=== PATIENT | male | born 1960 | race Caucasian/White ===

== ENCOUNTER → 2017-12-23 | Outpatient (CLI) | payer BC ==
--- NOTE | 2017-12-23 18:30 | ECHOF ---
Referral Reason:Z87.74 History of bicuspid aortioc valve, Z95.2... MEASUREMENTS -------- HEIGHT: 157.5 cm WEIGHT: 79.4 kg BP: RVIDd: 2.9 cm (< 3.3) IVSd: 1.0 cm (0.6 - 1.1) LVIDd: 3.2 cm (3.9 - 5.3) LVPWd: 1.2 cm (0.6 - 1.1) IVSs: 1.3 cm LVIDs: 2.1 cm LVPWs: 1.3 cm LAESV Index (A-L): 28.24 ml/m Ao Diam: 2.9 cm (2.0 - 3.7) AV Cusp: 1.6 cm (1.5 - 2.6) MV E Prem: 0.94 m/s MV DecT: 334 ms MV A Prem: 0.98 m/s MV E/A Ratio: 0.95 FINDINGS -------- Sinus rhythm. This was a technically adequate study. The left ventricular size is normal. There is borderline concentric left ventricular hypertrophy. Overall left ventricular systolic function is normal with, an EF between 55 - 60 %. The right ventricle is normal in size and function. Normal LA size by volume 22+/-6 ml/m2. The right atrium is normal in size. There is no evidence of aortic regurgitation. There is no evidence of aortic stenosis. Normally f unctioning bioprosthetic valve. The mitral valve leaflets are mildly thickened. There is trace to mild mitral regurgitation. Trace tricuspid regurgitation present. Right ventricular systolic pressure is normal at < 35 mmHg. There is no evidence of pulmonary hypertension. Trace/mild (physiologic) pulmonic regurgitation. The aortic root size is normal. Normal inferior vena cava with normal inspiratory collapse consistent with estimated right atrial pre ssure of 5 mmHg. Echo free space indicative of a pericardial fat pad. There is no pericardial effusion. CONCLUSIONS -------- 1. Sinus rhythm. 2. This was a technically adequate study. 3. The left ventricular size is normal. 4. There is borderline concentric left ventricular hypertrophy. 5. Overall left ventricular systolic function is normal with, an EF between 55 - 60 %. 6. Normal LA size by volume 22+/-6 ml/m2. 7. There is no evidence of aortic regurgitation. 8. There is no evidence of aortic stenosis. 9. Normally functioning bioprosthetic valve. 10. The mitral valve leaflets are mildly thickened. 11. There is trace to mild mitral regurgitation. 12. Trace tricuspid regurgitation present. 13. Right ventricular systolic pressure is normal at < 35 mmHg. 14. There is no evidence of pulmonary hypertension. 15. Trace/mild (physiologic) pulmonic regurgitation. 16. The aortic root size is normal. 17. Echo free space indicative of a pericardial fat pad. 18. There is no pericardial effusion. [employer] SUPERVISOR: Prashanth Shaikh RDCS
== END | disposition home or self-care (01) ==
LOC: RADECHMAIN 15:40
PROVIDERS: ATTEND Surgery
DX: Z09 Encounter for follow-up examination after completed treatment for conditions other than malignant neoplasm (principal); I05.8 Other rheumatic mitral valve diseases; I51.7 Cardiomegaly; Z87.74 Personal history of (corrected) congenital malformations of heart and circulatory system; Z95.2 Presence of prosthetic heart valve
CPT/HCPCS: 93306

== ENCOUNTER → 2019-11-25 | Outpatient (CLI) | payer BC ==
--- NOTE | 2019-11-25 08:12 | US ---
EXAMINATION TYPE: US scrotum with doppler. Grayscale and color Doppler Duplex imaging performed of t he scrotum. 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 Patient feels lump right testicle EXAM MEASUREMENTS: TESTICLES: Right Testicle: 3.1 x 1.8 x 2.2 cm Left Testicle: 4.1 x 1.7 x 2.3 cm EPIDIDYMIS HEAD: Right Epididymis: Unable to measure with certainty Left Epididymis: 1.2 cm Doppler performed to assess for testicular vascularity; good bilateral color flow and waveforms are s een. There is no evidence of testicular torsion. Presence of hydroceles: No Presence of varicoceles: No Within the area of the right epididymis, there is a complex cystic area visualized measuring 4.2 x 2. 1 x 3.2 cm IMPRESSION: Large solid and cystic mass right scrotum is outside the testicle as detailed above. Lesi on presumed benign due to location likely epididymal in origin. Does not have appearance of abscess.
== END | disposition home or self-care (01) ==
LOC: RADUSWWP 07:23
PROVIDERS: ATTEND Urology
DX: L72.9 Follicular cyst of the skin and subcutaneous tissue, unspecified (principal); N50.89 Other specified disorders of the male genital organs; D29.31 Benign neoplasm of right epididymis
CPT/HCPCS: 76870; 93975

== ENCOUNTER 2023-08-09 12:05 | Day surgery (SDC) | payer BC ==
[2023-08-06 13:05] VITALS: BMI 26.5
[~2023-08-09 12:05] MED LIST: LACTATED RINGERS 1,000 ML IV SCH; LIDOCAINE 1% (10MG/ML) FOR IV START INTRADERMA PRN; ONDANSETRON 4 MG/2 ML VIAL IVP PRN
[2023-08-09] MEDS: LACTATED RINGERS 1,000 ML IV ONE ×2 (12:28→13:46)
[2023-08-09 13:02] VITALS: RESP 16; TEMP 97.4
[2023-08-09] MEDS ORDERED: PROPOFOL 10 MG/ML 20 ML VIAL IV ONE (13:46)
--- NOTE | 2023-08-09 14:04 | P.PCN ---
Date of Procedure: 08/09/23 Procedure(s) Performed: BRIEF HISTORY: Patient is a 63-year-old pleasant white male scheduled for an elective colonoscopy as a part of screening for colon cancer. His last colonoscopy was 10 years ago. PROCEDURE PERFORMED: Colonoscopy. PREOPERATIVE DIAGNOSIS: Screening for colon cancer. IV sedation per Anesthesia. PROCEDURE: After informed consent was obtained, the patient, was brought into the endoscopy unit. IV sedation was administered by Anesthesia under continuous monitoring. Digital rectal examination was normal. Initially the Olympus CF-160 flexible video colonoscope was then inserted in the rectum, gradually advanced into the cecum without any difficulty. Careful examination was performed as the scope was gradually being withdrawn. Ileocecal valve and the appendiceal orifice were visualized and appeared normal. Prep was excellent. Mucosa of the cecum, ascending colon, transverse colon, descending colon, sigmoid colon, and rectum appeared normal. Moderate left-sided diverticulosis Retroflexion was performed in the rectum and no lesions were seen. The patient tolerated the procedure well. IMPRESSION: Normal-appearing colon from rectum to cecum no evidence of colorectal neoplasia. Moderate left-sided diverticulosis. RECOMMENDATIONS: Findings of this examination were discussed with the patient as well as his family. He was advised to have a repeat screening colonoscopy in 10 years..
[2023-08-09 14:35] VITALS: BP 108/64; PULSE 79
== END 2023-08-09 15:09 | disposition home or self-care (01) ==
LOC: ORWHC2ENDO 12:05
PROVIDERS: ATTEND Internal Medicine Gastroenterology
DX: Z12.11 Encounter for screening for malignant neoplasm of colon (principal); K57.30 Diverticulosis of large intestine without perforation or abscess without bleeding; I10 Essential (primary) hypertension; E11.9 Type 2 diabetes mellitus without complications; F32.A Depression, unspecified; F41.9 Anxiety disorder, unspecified; Q23.1 Congenital insufficiency of aortic valve; Z95.4 Presence of other heart-valve replacement; Z79.899 Other long term (current) drug therapy
CPT/HCPCS: 45378

== ENCOUNTER 2024-06-18 07:33 | Day surgery (SDC) | payer MEDICARE ==
[2024-06-18] MEDS ORDERED: LIDOCAINE 1% (10MG/ML) FOR IV START INTRADERMA PRN (07:44)
[2024-06-18] MEDS: IV FLUID CONTINUATION 1,000 ML IV ONE (08:19)
[2024-06-18] MEDS: LACTATED RINGERS 1,000 ML IV SCH (08:31)
[2024-06-18 08:33] VITALS: RESP 16; TEMP 97.8
[2024-06-18] MEDS ORDERED: LIDOCAINE 1% INJ 10MG/ML (20 ML MDV) ONE (09:16)
[2024-06-18] MEDS ORDERED: PROPOFOL 10 MG/ML 20 ML VIAL IV ONE (09:16)
--- NOTE | 2024-06-18 09:36 | P.PCN ---
Date of Procedure: 06/18/24 Procedure(s) Performed: BRIEF HISTORY: Patient is a 63-year-old, pleasant, white male scheduled for upper endoscopy as a part of abnormal CAT scan of the chest that was done on June 01, 2024 which revealed a large inferior area adjacent to the proximal duodenum and possibility of diverticulosis and also was suggested by the radiologist. Patient is asymptomatic. He is scheduled for an upper endoscopy to evaluate further.. PROCEDURE PERFORMED: Esophagogastroduodenoscopy. PREOPERATIVE DIAGNOSIS: Abnormal CT of the abdomen. IV sedation per anesthesia. PROCEDURE: After informed consent was obtained, the patient was brought into the endoscopy unit. IV sedation was administered by Anesthesia under continuous monitoring. Initially the Olympus GIF-140 video endoscope was inserted into the mouth. Esophagus intubated without any difficulty. It was gradually advanced into the stomach and duodenum and carefully examined. The bulb and the second part of the duodenum appeared normal. Large duodenal diverticulum identified in the second part of the duodenum. The scope at this time was withdrawn to the stomach, adequately insufflated with air, and upon careful examination, mucosa of the antrum, mild gastritis. Mucosa body, cardia and the fundus appeared normal. The scope was then withdrawn into the esophagus. The GE junction was located at 39 cm from the incisors. The esophagus appeared normal. There were no erosions or ulcerations seen and the patient tolerated the procedure well. IMPRESSION: 1. Large duodenal diverticulum to get him in the second part of the duodenum. 2. Mild gastritis. RECOMMENDATIONS: The findings of this examination were discussed with the patient as well as his family. He was advised to follow-up in the office as needed if he has any symptoms..
[2024-06-18 09:56] VITALS: BP 112/70; PULSE 52
== END 2024-06-18 10:15 | disposition home or self-care (01) ==
LOC: ORWHC2ENDO 07:33
PROVIDERS: ATTEND Internal Medicine Gastroenterology
DX: K57.10 Diverticulosis of small intestine without perforation or abscess without bleeding (principal); K29.70 Gastritis, unspecified, without bleeding; R93.5 Abnormal findings on diagnostic imaging of other abdominal regions, including retroperitoneum; I10 Essential (primary) hypertension; E11.9 Type 2 diabetes mellitus without complications; F32.A Depression, unspecified; F41.9 Anxiety disorder, unspecified; Z87.19 Personal history of other diseases of the digestive system; Z79.82 Long term (current) use of aspirin; Z79.899 Other long term (current) drug therapy; Z95.2 Presence of prosthetic heart valve
CPT/HCPCS: 43235; J2003; J2704

== ENCOUNTER → 2024-09-08 | Outpatient (CLI) | payer MEDICARE ==
--- NOTE | 2024-09-08 13:31 | MR ---
EXAMINATION TYPE: MR Prostate wo/w con DATE OF EXAM: 09/08/2024 8:37 AM COMPARISON: None. CLINICAL INDICATION: Male, 64 years old with history of R97.20 ELEVATED PROSTATE SPECIFIC ANTIGEN [PS A]; PSA Level Elevated TECHNIQUE: Multi-planar, multi-sequence imaging of the pelvis is performed prior to and following the uncomplicated administration of bolus intravenous gadolinium. IV Contrast: 6ml mL Gadobutrol Interpretive Criteria: PI-RADS v2.1 SERUM PSA: PSA 6.010 06/25/23 PSA 7.540 08/11/24 SURGICAL PATHOLOGY: Biopsy 2018 benign. FINDINGS: Prostatic dimensions: 5.9 x 5.5 x 4.7 cm. Ellipsoid Volume:79.86 (PSA density=0.09 ng/mL/mL) CENTRAL GLAND (Central and Transition Zones/CZ+TZ): Multiple bilateral, heterogenous appearing hypertrophic stromal nodules, without suspicious lesion. M edian lobe hypertrophy with protrusion into the base of the bladder. (PI-RADS 2) PERIPHERAL ZONE (PZ): Bilateral linear, indistinct wedgelike areas of low ADC, and low T2 signal, No evidence of masslike a bnormality, or localized perfusional hypervascularity, to further suggest a focus of clinically signi ficant prostate cancer. (PI-RADS 2) SEMINAL VESICLES (SV): Symmetric and unremarkable. PERIPROSTATIC TISSUES: Unremarkable. LYMPH NODES: No enlarged pelvic lymph node. REMAINING PELVIS: Trabeculated bladder wall likely secondary to chronic bladder outlet obstruction. No abnormal free or organized intrapelvic fluid collection. No pathologic bowel dilation or mural thickening. Right fat containing inguinal hernia OSSEOUS STRUCTURES: No suspicious osseous abnormality. IMPRESSION: 1. No specific features for high-risk prostate cancer. Maximum PI-RADS score: 2. 2. Substantial BPH, estimated gland volume 79.86 (PSA density=0.09 ng/mL/mL) 3. No suspicious osseous lesion. No lymphadenopathy. No evidence of prostate adenocarcinoma involving the periprostatic tissues. [facility], , 09/08/2024 1:28 PM
== END | disposition home or self-care (01) ==
LOC: RADMRIMAIN 07:13
PROVIDERS: ATTEND Urology
DX: R97.20 Elevated prostate specific antigen [PSA] (principal); N40.0 Benign prostatic hyperplasia without lower urinary tract symptoms; K40.90 Unilateral inguinal hernia, without obstruction or gangrene, not specified as recurrent
CPT/HCPCS: 72197; A9585